=== PATIENT | male | born 1940 | race Caucasian/White ===

== ENCOUNTER 2019-04-04 19:47 | Observation (INO) ==
[2019-04-04] MEDS ORDERED: 0.9 % Sodium Chloride 1,000 ML IVC ONE (19:53)
[2019-04-04 20:23] LABS: Basophils % 0.3 %; Eosinophils # 0.1 K/mcL (0.0-0.6); Eosinophils % 1.4 %; Hematocrit 44.4 % (37.5-50.1); Hemoglobin 15.7 g/dL (12.9-16.9); Immature Granulocytes % 0.2 % (0-4); Lymphocytes # 2.1 K/mcL (0.6-4.6); Lymphocytes % 23.6 %; Mean Corpuscular HGB Conc 35.4 g/dL (31.6-35.5); Mean Corpuscular Hemoglobin 30.3 pg (28.0-33.3); Mean Corpuscular Volume 85.7 fL (83.0-100.0); Mean Platelet Volume 8.7 fL (9.4-12.4); Monocytes # 0.8 K/mcL (0.0-1.3); Monocytes % 9.3 %; Neutrophils # 5.9 K/mcL (1.6-8.9); Platelet Count 263 K/mcL (140-400); Red Blood Count 5.18 M/mcL (4.19-5.50); Red Cell Distribution Width 12.2 % (11.5-14.5); Segmented Neutrophils % 65.2 %
[2019-04-04 20:28] LABS: Prothrombin Time 11.8 Seconds (9.4-12.1)
[2019-04-04 20:31] LABS: Activated Partial Thrombo Time 28.9 Seconds (26.0-36.0)
[2019-04-04 20:54] LABS: BUN/Creatinine Ratio 15 (6-26); Blood Urea Nitrogen 16 mg/dL (8-23); Calcium 9.2 mg/dL (8.6-10.3); Carbon Dioxide 25 mEq/L (23-29); Chloride 104 mEq/L (98-107); Glucose 116 mg/dL (70-105); Magnesium 2.2 mg/dL (1.6-2.6); Osmolality,Calculated 290 (280-300); Potassium 3.9 mEq/L (3.5-5.1); Sodium 139 mEq/L (136-145); Troponin I < 0.03 ng/mL (< 0.04); eGFR For African Americans > 60 (> 60); eGFR For Non-African Americans > 60 (> 60)
[2019-04-04 21:00] LABS: Thyroid Stimulating Hormone 1.823 mcIU/mL (0.340-5.600)
[2019-04-05] MEDS ORDERED: Naloxone 0.4 MG/ML INJ IVP PRN (06:04)
[2019-04-05 07:20] LABS: Hemoglobin 15.2 g/dL (12.9-16.9); Mean Corpuscular HGB Conc 33.8 g/dL (31.6-35.5); Mean Corpuscular Hemoglobin 30.6 pg (28.0-33.3); Mean Corpuscular Volume 90.5 fL (83.0-100.0); Mean Platelet Volume 8.9 fL (9.4-12.4); Platelet Count 257 K/mcL (140-400); Red Blood Count 4.97 M/mcL (4.19-5.50); White Blood Count 7.6 K/mcL (4.3-11.1)
[2019-04-05 07:46] LABS: BUN/Creatinine Ratio 14 (6-26); Blood Urea Nitrogen 14 mg/dL (8-23); Calcium 8.8 mg/dL (8.6-10.3); Carbon Dioxide 29 mEq/L (23-29); Chloride 106 mEq/L (98-107); Glucose 113 mg/dL (70-105); Osmolality,Calculated 293 (280-300); Potassium 3.9 mEq/L (3.5-5.1); Sodium 141 mEq/L (136-145); eGFR For African Americans > 60 (> 60); eGFR For Non-African Americans > 60 (> 60)
[2019-04-05] MEDS ORDERED: amLODIPine 5 MG TABLET PO SCH (12:36)
[2019-04-05 15:21] VITALS: BP 149/83
[2019-04-05] MEDS ORDERED: *HR* Rivaroxaban 10 MG TABLET PO SCH (17:00)
[2019-04-05] MEDS ORDERED: *HR* Heparin 5,000 UNIT/ML VIAL SQ SCH (18:00)
== END 2019-04-05 16:47 | disposition home or self-care (01) ==
LOC: 3BNU 19:47 → EMEROOARM 19:47 → SUATTDRO 22:20 → 3BNU 23:45
PROVIDERS: ADMIT Internal Medicine; ATTEND Internal Medicine